=== PATIENT | male | born 1960 | race Caucasian/White ===

== ENCOUNTER 2017-02-16 17:53 | Emergency (ER) | payer OTHER ==
[2017-02-16 18:53] LABS: BASOPHIL % 0.7 % (0-2); RED CELL DISTRIBUTION WIDTH 13.7 % (11.5-14.5)
[2017-02-16 18:57] LABS: CALCIUM 8.9 mg/dL (8.5-10.1); CARBON DIOXIDE 21.6 mmol/L (21-32); CHLORIDE SERUM 109 mmol/L (98-107); CREATININE SERUM 0.8 mg/dL (0.7-1.3); GFR1 > 60 mL/min; GLUCOSE SERUM 152 mg/dL (74-106); POTASSIUM SERUM 4.4 mmol/L (3.5-5.1); SODIUM SERUM 140 mmol/L (136-145)
[2017-02-16 19:00] LABS: PLATELET COUNT 67 x10^3mcL (130-400)
[2017-02-16 19:02] LABS: ALKALINE PHOSPHATASE 304 U/L (46-116); ALT/SGPT 97 U/L (16-63); AST/SGOT 83 U/L (15-37); BILIRUBIN TOTAL 0.74 mg/dL (0.20-1.00); TOTAL PROTEIN, SERUM 8.1 g/dL (6.4-8.2)
[2017-02-16 19:06] LABS: ALBUMIN 3.3 g/dL (3.4-5.0)
[2017-02-16 20:10] VITALS: BP 141/81
== END 2017-02-16 20:10 | disposition other institution (70) ==
LOC: ED 17:53
PROVIDERS: Emergency Medicine
DX: M94.0 Chondrocostal junction syndrome [Tietze] (principal); I10 Essential (primary) hypertension; E11.40 Type 2 diabetes mellitus with diabetic neuropathy, unspecified; I48.91 Unspecified atrial fibrillation; Z79.4 Long term (current) use of insulin; Z79.82 Long term (current) use of aspirin; Z79.899 Other long term (current) drug therapy
CPT/HCPCS: 36415; J1885

== ENCOUNTER 2017-02-16 17:53 | Emergency (ER) | payer OTHER | END 2017-02-16 20:10 | disposition other institution (70) | LOC: ED 17:53 | DX: Z02.89 Encounter for other administrative examinations (principal); R07.89 Other chest pain; M94.0 Chondrocostal junction syndrome [Tietze]; E11.40 Type 2 diabetes mellitus with diabetic neuropathy, unspecified; I10 Essential (primary) hypertension; Z79.4 Long term (current) use of insulin; Z79.899 Other long term (current) drug therapy ==